=== PATIENT | male | born 1995 | race Hispanic/Latino ===

== ENCOUNTER 2018-09-23 19:10 | Emergency (ER) | payer OTHER ==
[2018-09-23 19:19] VITALS: TEMP 98.3
--- NOTE | 2018-09-23 20:48 | ED PDOC ---
HPI: Male Pain Time Seen by Provider: 09/23/18 20:19 Chief Complaint (Nursing): Male Genitourinary Chief Complaint (Provider): Male Genitourinary History Per: Patient History/Exam Limitations: no limitations Onset/Duration Of Symptoms: Days (x1) Current Symptoms Are (Timing): Still Present Additional Complaint(s): 23 year old male presents to the emergency department with a complaint of left testicular pain (scale: 4/10) since 0800 this morning. He was seen at Urgent Care with a normal UA but referred to ED for further evaluation. Otherwise, he denies nausea, vomiting, urinary symptoms, radiation of pain to flank, penile pain or discharge. Patient reports not being sexually active for the past 6 months. PCP: none provided Past Medical History Reviewed: Historical Data, Nursing Documentation, Vital Signs Vital Signs: Last Vital Signs Temp 98.3 F 09/23/18 19:19 Pulse 54 L 09/23/18 19:19 Resp 16 09/23/18 19:19 BP 136/70 09/23/18 19:19 Pulse Ox 97 09/23/18 19:19 - Medical History PMH: No Chronic Diseases - Surgical History Surgical History: No Surg Hx - Family History Family History: States: Unknown Family Hx - Allergies Allergies/Adverse Reactions: Allergies Allergy/AdvReac Type Severity Reaction Status Date / Time sulfamethoxazole Allergy NAUSEA Verified 09/23/18 19:21 [From Bactrim] trimethoprim [From Bactrim] Allergy NAUSEA Verified 09/23/18 19:21 Review of Systems Gastrointestinal: Negative for: Nausea, Vomiting Genitourinary Male: Positive for: Other (left testicular pain). Negative for: Dysuria, Hematuria, Penile Discharge, Penile Pain Physical Exam - Reviewed Nursing Documentation Reviewed: Yes Vital Signs Reviewed: Yes - Physical Exam Appears: Positive for: Uncomfortable Gastrointestinal/Abdominal: Positive for: Normal Exam, Soft. Negative for: Tenderness Male Genital Exam: Positive for: normal genitalia (circumsized penis), other ((+) cremasteric Reflex). Negative for: testicular tenderness (L) (or swelling/redness) - ECG O2 Sat by Pulse Oximetry: 97 (RA) Pulse Ox Interpretation: Normal Medical Decision Making Medical Decision Making: Time: 2029 Initial Plan: * UA * US testes duplex Time: 2214 --US testes FINDINGS: RIGHT TESTICLE: Normal in size and echogenicity, no abnormal mass. The right testicle measured approximate 4.8 x 2.0 x 3.1 cm in longitudinal, AP and transverse dimensions respectively. Normal Doppler flow. LEFT TESTICLE: Normal in size and echogenicity, no abnormal mass. The left testicle measured approximate 5.0 x 2.2 x 2.9 cm in longitudinal, AP and transverse dimensions respectively. Normal Doppler flow. EPIDIDYMIDES: Within normal limits in size and vascularity SCROTUM: No hydrocele, varicocele, or extratesticular mass seen. Unremarkable. IMPRESSION: No acute abnormality evident on sonographic examination of the scrotum. Time: 2245 --Labs reviewed: (-) significant clinical abnormality. Upon provider reevaluation, patient is medically stable, reports feeling better, and requires no further treatment in the ED at this time. Patient will be discharged home and advised to follow up with urologist. Counseling was provided and all questions were answered regarding diagnosis. There is agreement to discharge plan. Return if symptoms persist or worsen. Clinical Impression: Left testicular pain Scribe Attestation: Documented by Marlee Luis, acting as a scribe for Rivera Mckinney MD. Provider Scribe Attestation: All medical record entries made by the Scribe were at my direction and personally dictated by me. I have reviewed the chart and agree that the record accurately reflects my personal performance of the history, physical exam, medical decision making, and the department course for this patient. I have also personally directed, reviewed, and agree with the discharge instructions and disposition. Disposition - Clinical Impression Clinical Impression: Testicular pain, left - Patient ED Disposition Is Patient to be Admitted: No Counseled Patient/Family Regarding: Studies Performed, Diagnosis, Need For Followup - Disposition Referrals: Tyesha Watts MD [Medical Doctor] - Disposition: Routine/Home Disposition Time: 22:46 Condition: STABLE Instructions: Testicular Torsion, Adult Forms: [employer] (M[place]ese)
[2018-09-23 21:51] LABS: URINE BILIRUBIN NEGATIVE (NEGATIVE); URINE BLOOD NEGATIVE (NEGATIVE); URINE CLARITY CLEAR (Clear); URINE COLOR YELLOW (YELLOW); URINE GLUCOSE (UA) NEG (NEGATIVE); URINE LEUKOCYTE ESTERASE NEG Leu/uL (Negative); URINE PROTEIN NEGATIVE (NEGATIVE); URINE UROBILINOGEN 0.2-1.0 mg/dL (0.2-1.0)
[2018-09-23 23:10] VITALS: BP 125/88; PULSE 59; RESP 18; O2SAT 97
--- NOTE | 2018-09-24 13:45 | US ---
Date of service: 09/23/2018 HISTORY: pain TECHNIQUE: Realtime sonography through the scrotum with color and doppler flow. COMPARISON: None Available. FINDINGS: RIGHT TESTICLE: Measures 4.8 x 2.0 x 3.1 cm. Normal echotexture and flow. RIGHT EPIDIDYMIS: Epididymal head measures 1.0 x 0.5 x 0.6 cm. Grossly unremarkable appearance with normal flow. LEFT TESTICLE: Measures 5.0 x 2.2 x 2.9 cm. Normal echotexture and flow. LEFT EPIDIDYMIS: Epididymal head measures 1.0 x 0.6 x 1.2 cm. Grossly unremarkable appearance with normal flow. HYDROCELE: Small left hydrocele on the left side noted VARICOCELE: None. OTHER FINDINGS: None. IMPRESSION: Small left-sided hydrocele. This was not mentioned on the preliminary [facility] report No intratesticular masses noted. Normal flow to both testicles demonstrated Unremarkable appearing epididymi Comments: Findings are discordant with the preliminary [facility] in terms of the prior preliminary not mentioning a small left-sided hydrocele
== END 2018-09-23 22:43 | disposition home or self-care (01) ==
LOC: H.ER 19:10
DX: N50.812 Left testicular pain (principal); Z88.2 Allergy status to sulfonamides